=== PATIENT | male | born 1995 | race Caucasian/White ===

== ENCOUNTER 2016-08-16 12:14 | Outpatient (CLI) ==
[2015-08-08 03:28] VITALS: BMI 21.2
--- NOTE | 2016-08-16 12:44 | DI ---
EXAM: Radiographs, left hip HISTORY: Left hip pain. COMPARISON: None available. TECHNIQUE: 2 views. FINDINGS: Bone mineralization is normal. There is no fracture or dislocation. The joint spaces ar e maintained. No focal soft tissue abnormality is seen. IMPRESSION: No abnormality of the left hip.
--- NOTE | 2016-08-16 12:44 | US ---
EXAM: Nonvascular ultrasound of the left groin. History: Left groin pain. Technique: Multiple sonographic images through the left groin were obtained. Color duplex Doppler was used to interrogate vascular flow. Findings: No masses, lymph nodes or fluid collections identified. Impression: No sonographic abnormalities.
== END 2016-08-16 12:15 | disposition home or self-care (01) ==
LOC: RAD 12:14
PROVIDERS: ATTEND Family Medicine
DX: R10.32 Left lower quadrant pain (principal); M25.552 Pain in left hip
CPT/HCPCS: 76882